=== PATIENT | male | born 1965 | race African-American/Black ===

== ENCOUNTER 2020-05-04 11:53 | Emergency (ER) | payer OTHER ==
[~2020-05-04] VITALS: Ht 172.7 cm; Wt 70.0 kg
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
[2020-05-04] MEDS ORDERED: TETANUS AND DIPHTHERIA TOX/PF 0.5 ML DISP.SYRIN. VAX IM ONE (12:15)
[2020-05-04] MEDS ORDERED: AMOXICILLIN/K CLAV 875/125MG TABLET. PO ONE (12:15)
[2020-05-04] MEDS ORDERED: CLINDAMYCIN HCL 150 MG CAPSULE. PO ONE (12:30)
[2020-05-04] MEDS ORDERED: HYDROcodone/APAP 10/325 1 TAB TABLET PO ONE (13:00)
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
[2020-05-04] MEDS ORDERED: IV NORMAL SALINE 1000ML BAG 1,000 ML IV ONE (13:15)
[2020-05-04] MEDS ORDERED: HYDR-3164 PO (13:20)
[2020-05-04] MEDS ORDERED: CLIN300C9 PO (13:20)
[2020-05-04] MEDS ORDERED: LEVO500T8 PO (13:20)
[2020-05-04] MEDS ORDERED: ONDANSETRON PF 4 MG/2 ML VIAL. IVP ONE (13:30)
[2020-05-04] MEDS ORDERED: KETOROLAC 15 MG/ML VIAL. IVP ONE (13:30)
[2020-05-04 13:46] VITALS: BP 132/81
== END 2020-05-04 13:45 | disposition home or self-care (01) ==
LOC: ER 11:53
DX: S62.615A Displaced fracture of proximal phalanx of left ring finger, initial encounter for closed fracture (principal); S41.002A Unspecified open wound of left shoulder, initial encounter; Y04.1XXA Assault by human bite, initial encounter; Y93.89 Activity, other specified; Y92.89 Other specified places as the place of occurrence of the external cause; Y99.8 Other external cause status
CPT/HCPCS: 29125; 73130; 90471; 90714; 99284

== ENCOUNTER 2020-05-12 19:27 | Emergency (ER) | payer OTHER ==
[~2020-05-12] VITALS: Ht 172.7 cm; Wt 68.6 kg
[~2020-05-12 19:27] MED LIST: CLIN300C9 PO; HYDR-3164 PO; LEVO500T8 PO
[2020-05-12 19:51] VITALS: BP 118/78
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
== END 2020-05-12 20:55 | disposition home or self-care (01) ==
LOC: ER 19:27
DX: S62.615D Displaced fracture of proximal phalanx of left ring finger, subsequent encounter for fracture with routine healing (principal); R60.0 Localized edema; Z98.890 Other specified postprocedural states; Y04.1XXD Assault by human bite, subsequent encounter
CPT/HCPCS: 29125; 99283